=== PATIENT | female | born 1975 | race Caucasian/White ===

== ENCOUNTER → 2016-09-18 | Outpatient (CLI) | payer BC ==
--- NOTE | 2016-09-18 08:46 | US ---
EXAMINATION TYPE: US pelvic limited DATE OF EXAM: 09/18/2016 COMPARISON: NONE CLINICAL HISTORY: R10.817 generalized abdominal tenderness. Pelvic pain, bloating, complete hysterect олег 2013 TECHNIQUE: Transabdominal (TA) Date of LMP: 11/2013 EXAM MEASUREMENTS: Uterus: Surgically absent Endometrial Stripe: Surgically absent Right Ovary: Surgically absent Left Ovary: Surgically absent 1. Uterus: Surgically absent, vaginal cuff = 0.5cm 2. Endometrium: Surgically absent 3. Right Ovary: Surgically absent 4. Left Ovary: Surgically absent 5. Bilateral Adnexa: appears wnl IMPRESSION: Postop change.
--- NOTE | 2016-09-18 08:48 | US ---
EXAMINATION TYPE: US abdomen complete DATE OF EXAM: 09/18/2016 COMPARISON: NONE CLINICAL HISTORY: R10.817 abdominal tenderness. Lower abdominal pain, bloating EXAM MEASUREMENTS: Liver Length: 18.8 cm Gallbladder Wall: 0.2 cm CBD: 0.4 cm Spleen: 11.0 cm Right Kidney: 11.0 x 3.8 x 4.1 cm Left Kidney: 11.8 x 4.7 x 5.9 cm Pancreas: visualized portions appear wnl Liver: enlarged and there is a coarse echotexture present Gallbladder: multiple non-mobile hyperechoic areas (polyps) noted, largest = 0.8cm Evidence for sonographic Valencia's sign: No CBD: wnl Spleen: wnl Right Kidney: no evidence of hydronephrosis Left Kidney: no evidence of hydronephrosis Upper IVC: wnl Abd Aorta: visualized portions appear wnl There is no ascites. The intrahepatic portion of the IVC and proximal abdominal aorta are within normal limits. Common bi le duct is unremarkable. The visualized portions of the pancreas are homogenous. The spleen is unre markable. There is no ascites. Kidneys are symmetric and free of hydronephrosis, normal cortical medu llary differentiation. No renal lesions are seen. IMPRESSION: There may be fatty infiltration of liver. Possible gallbladder wall polyps or adherent st ones.
== END | disposition home or self-care (01) ==
LOC: RADUSMAIN 06:37
PROVIDERS: ATTEND Family Medicine
DX: R10.817 Generalized abdominal tenderness (principal); Z98.890 Other specified postprocedural states
CPT/HCPCS: 76700; 76857

== ENCOUNTER → 2017-02-01 | Outpatient (CLI) | payer BC ==
--- NOTE | 2017-02-03 10:13 | MM ---
Reason for exam: screening (asymptomatic). Last mammogram was performed 1 year and 1 month ago. History: Patient is postmenopausal. Family history of breast cancer in maternal grandmother at age 60. Physical Findings: A clinical breast exam by your physician is recommended on an annual basis and results should be correlated with mammographic findings. MG Screening Mammo w CAD Bilateral CC and MLO view(s) were taken. Prior study comparison: January 06, 2016, bilateral MG screening mammo w CAD. January 03, 2015, bilateral MG screening mammo w CAD. There are scattered fibroglandular densities. No significant changes when compared with prior studies. ASSESSMENT: Negative, BI-RAD 1 RECOMMENDATION: Routine screening mammogram of both breasts in 1 year.
== END | disposition home or self-care (01) ==
LOC: RADMAMWWP 09:33
PROVIDERS: ATTEND Family Medicine
DX: Z12.31 Encounter for screening mammogram for malignant neoplasm of breast (principal)

== ENCOUNTER → 2017-05-20 | Outpatient (CLI) | payer BC ==
--- NOTE | 2017-05-20 12:01 | CT ---
EXAMINATION TYPE: CT pelvis wo con DATE OF EXAM: 05/20/2017 COMPARISON: NONE HISTORY: Pelvic pain CT DLP: 479.5 mGycm Automated exposure control for dose reduction was used. FINDINGS: Visualized portions of the kidneys demonstrate no hydronephrosis or nephrolithiasis. A portion of the gallbladder demonstrates no gallstones. Aorta of normal caliber with mild atherosclerotic changes. Bowel gas pattern nonspecific. No obstruction. Retained fecal debris throughout the colon. 3 mm hypodensity within the liver is nondiagnostic indeterminate by noncontrast CT technique. Bladder has a normal appearance. Findings suggest previous hysterectomy correlate clinically. No free fluid. No evidence of adenopathy or soft tissue mass. Degenerative change L5-S1 incidentally noted IMPRESSION: NO ACUTE PROCESS. CORRELATE FOR PREVIOUS HYSTERECTOMY. CORRELATE FOR CONSTIPATION.
== END | disposition home or self-care (01) ==
LOC: RADCTMAIN 09:34
PROVIDERS: ATTEND Family Medicine
DX: R10.2 Pelvic and perineal pain (principal); Z90.710 Acquired absence of both cervix and uterus
CPT/HCPCS: 72192